=== PATIENT | female | born 1940 | race Caucasian/White ===

== ENCOUNTER 2018-10-02 11:34 | Emergency (ER) | payer MEDICARE ==
[~2018-10-02] VITALS: Ht 170.2 cm; Wt 69.1 kg
[~2018-10-02 11:34] MED LIST: ALPR-623 PO; AMLO5TAB4 PO; ASPI81TA52 PO; ESTR0.5T28 PO; FAMO20TA47 PO; LOSA100T57 PO; ZOLP5TAB2 PO
[2018-10-02 15:30] VITALS: BP 161/75
== END 2018-10-02 15:50 | disposition home or self-care (01) ==
LOC: ER 11:35
DX: M25.552 Pain in left hip (principal); Z88.0 Allergy status to penicillin; Z88.2 Allergy status to sulfonamides; Z79.82 Long term (current) use of aspirin
CPT/HCPCS: 73502; 99283